=== PATIENT | female | born 1955 | race Caucasian/White ===

== ENCOUNTER → 2017-08-09 | Outpatient (CLI) | payer BC ==
[~2017-08-09] MED LIST: HYDROCODON-ACE1 EAC7 PO; ONCE DAILY1 EACH PO
== END | disposition home or self-care (01) ==
LOC: CDC 08:41
DX: Z01.810 Encounter for preprocedural cardiovascular examination (principal); N63.10 Unspecified lump in the right breast, unspecified quadrant
CPT/HCPCS: 93000

== ENCOUNTER 2017-08-14 05:28 | Day surgery (SDC) | payer BC ==
[~2017-08-14] VITALS: Ht 154.9 cm; Wt 62.6 kg
[2017-08-14] MEDS ORDERED: ONCE DAILY1 EACH PO (06:57)
[2017-08-14 06:59] VITALS: BP 132/72
[2017-08-14] MEDS ORDERED: HYDROCODON-ACE1 EAC7 PO (12:12)
[2017-08-14 14:40] VITALS: BP 145/73
[2017-08-14 15:38] VITALS: BP 118/63
== END 2017-08-14 15:55 | disposition home or self-care (01) ==
LOC: SDC
PROC: 0HBT0ZX Excision of Right Breast, Open Approach, Diagnostic (ICD-10-PCS; principal; 2017-08-14)
DX: D24.2 Benign neoplasm of left breast (principal); N60.81 Other benign mammary dysplasias of right breast; N60.21 Fibroadenosis of right breast; Z90.49 Acquired absence of other specified parts of digestive tract; Z87.891 Personal history of nicotine dependence
CPT/HCPCS: 88307; 88342 TC; J0690; J1100; J1170; J2250; J2405; J2765; J3010; S0020